=== PATIENT | male | born 1985 | race Caucasian/White ===

== ENCOUNTER 2024-08-06 13:16 | Emergency (ER) | payer OTHER, SELFPAY ==
[2024-08-06 13:22] VITALS: BP 132/96; PULSE 118; RESP 16; TEMP 36.6; O2SAT 100
[2024-08-06 14:44] VITALS: BP 142/83; PULSE 82; RESP 16; TEMP 36.9; O2SAT 100
[2024-08-06 14:52] LABS: Basophils Absolute Auto 0.1 K/mm3 (0.0-0.1); Basophils Percent Auto 0.4 % (0.2-1.2); Eosinophils Percent Auto 0.3 % (0-4.4); Hematocrit 50.1 % (42.0-52.0); Hemoglobin 17.5 g/dL (14.0-18.0); Immature Granulocyte Absolute 0.07 K/mm3 (0.00-0.031); Immature Granulocyte Percent A 0.6 % (0-0.5); Lymphocytes Absolute Auto 1.71 K/mm3 (0.9-3.2); Lymphocytes Percent Auto 14.6 % (18.3-44.2); Mean Corpuscular HGB Conc 34.9 g/dl (32-36); Mean Corpuscular Hemoglobin 30.4 pg (26-34); Mean Corpuscular Volume 87.1 fl (80-100); Mean Platelet Volume 9.2 fl (7.4-10.4); Monocytes Percent Auto 8.6 % (2.6-8.5); Neutrophils Absolute Auto 8.8 K/mm3 (1.3-6.7); Neutrophils Percent Auto 75.5 % (45.5-73.1); Platelet Count Result 312 k/mm3 (150-375); Red Blood Count 5.75 M/mm3 (4.6-6.20); Red Cell Distribution Width 12.1 % (11.5-14.5); White Blood Count 11.7 K/mm3 (4.5-10.0)
[2024-08-06 14:58] LABS: Add Urine Microscopic? NO; Appearance Urine Clear (Clear); Bilirubin Urine Negative (Negative); Blood Urine Negative (Negative); Color Urine Yellow (Yellow); Glucose Urine UA Negative (Negative); Ketones Urine Negative (Negative); Leukocyte Esterase Ur Negative LEU/UL (Negative); Nitrate Urine Negative (Negative); Protein Urine Negative (Negative); Specific Grav Ur 1.015 (1.001-1.035); Urobilinogen Urine 0.2 mg/dL (<2.0)
[2024-08-06 15:02] LABS: Alanine Aminotransferase 37 U/L (6-50); Albumin Level 4.9 g/dL (3.5-5.1); Alkaline Phosphatase 50 U/L (38-126); Anion Gap 12 mmol/L (4-12); Aspartate Amino Transferase 31 U/L (17-59); Bilirubin,Total 1.9 mg/dL (0.2-1.3); Blood Urea Nitrogen 7 mg/dL (9-20); Calcium 9.5 mg/dL (8.4-10.2); Carbon Dioxide 29 mmol/L (22-30); Chloride 96 mmol/L (98-107); Estimated CRCL calculation 78 ml/min; Estimated Glomerular Filt Rate > 60; Glucose 111 mg/dL (65-110); Lipase 45 U/L (23-300); Potassium 3.5 mmol/L (3.4-5.0); Sodium 137 mmol/L (137-145)
--- NOTE | 2024-08-06 15:52 | ED.GENADULT ---
HPI - General Adult General Chief complaint: Abdominal Pain Stated complaint: Abd Pain Time Seen by Provider: 08/06/24 14:34 History of Present Illness HPI narrative: This is a 38-year-old male presenting ED with chief complaint of nausea vomiting diarrhea. Yesterday evening patient's only he is getting a stomach flu. He developed an achy cramping pain that is associated with dry heaves and the feeling that he had a bowel movement. This morning went to Urgent Care was told to come to the ED for further eval. On my evaluation all of his symptoms are resolved and he is sitting in bed comfortably. No fevers chills chest pain difficulty breathing abdominal pain. No nausea vomiting diarrhea. Patient is requesting discharge. Related Data Allergies Allergy/AdvReac Type Severity Reaction Status Date / Time ampicillin Allergy Hives Verified 08/06/24 13:25 Exam Narrative: APPEARANCE: No apparent distress. Head: atraumatic. EYES: EOMI, NOSE: Atraumatic NECK: Trachea midline RESPIRATORY: No increased rate of breathing clear to auscultation CARDIOVASCULAR: RRR, ABDOMINAL: Soft nontender no guarding rebound MUSCULOSKELETAl: No obvious deformities NEURO: Alert. Moving 4/4 extremities SKIN:: Warm, dry. Normal color PSYCHIATRIC: Normal affect Course Vital Signs Vital signs: Vital Signs Temperature 97.8 F 08/06/24 13:22 Pulse Rate 118 H 08/06/24 13:22 Respiratory Rate 16 08/06/24 13:22 Blood Pressure 132/96 H 08/06/24 13:22 Pulse Oximetry 100 08/06/24 13:22 Oxygen Delivery Room Air 08/06/24 13:22 Temperature 98.5 F 08/06/24 14:44 Pulse Rate 82 08/06/24 14:44 Respiratory Rate 16 08/06/24 14:44 Blood Pressure 142/83 H 08/06/24 14:44 Pulse Oximetry 100 08/06/24 14:44 Oxygen Delivery Room Air 08/06/24 13:22 Medical Decision Making [facility] Narrative Medical decision making narrative: -Course: 38-year-old male presenting with abdominal pain nausea vomiting diarrhea. By time he was evaluated in emergency department all of his symptoms have resolved. His abdominal exam is benign. His vital signs have normalized without intervention. Discussed further workup versus discharge and patient would like to be sent home. He has declined any sort of antiemetics antispasmodics. Primary care follow-up and return precautions. -DDX includes but is not limited to: Gastroenteritis, food poisoning, gastritis, colitis -Independent interpretation of studies: Labs reviewed -Dx tests considered but not ordered: CT abdomen pelvis-benign abdominal exam -Shared decision making / Disposition: Discharged Vital Signs Vital Signs: Vital Signs Temperature 97.8 F 08/06/24 13:22 Pulse Rate 118 H 08/06/24 13:22 Respiratory Rate 16 08/06/24 13:22 Blood Pressure 132/96 H 08/06/24 13:22 Pulse Oximetry 100 08/06/24 13:22 Oxygen Delivery Room Air 08/06/24 13:22 Temperature 98.5 F 08/06/24 14:44 Pulse Rate 82 08/06/24 14:44 Respiratory Rate 16 08/06/24 14:44 Blood Pressure 142/83 H 08/06/24 14:44 Pulse Oximetry 100 08/06/24 14:44 Oxygen Delivery Room Air 08/06/24 13:22 Lab Data 08/06/24 14:45 08/06/24 14:45 Labs: Lab Results 08/06/24 08/06/24 Range/Units 14:45 14:50 WBC 11.7 H (4.5-10.0) K/mm3 RBC 5.75 (4.6-6.20) M/mm3 Hgb 17.5 (14.0-18.0) g/dL Hct 50.1 (42.0-52.0) % MCV 87.1 (80-100) fl MCH 30.4 (26-34) pg MCHC 34.9 (32-36) g/dl RDW 12.1 (11.5-14.5) % Plt Count 312 (150-375) k/mm3 MPV 9.2 (7.4-10.4) fl Immature Gran % (Auto) 0.6 H (0-0.5) % Neut % (Auto) 75.5 H (45.5-73.1) % Lymph % (Auto) 14.6 L (18.3-44.2) % [place] % (Auto) 8.6 H (2.6-8.5) % Eos % (Auto) 0.3 (0-4.4) % Baso % (Auto) 0.4 (0.2-1.2) % Lymph # (Auto) 1.71 (0.9-3.2) K/mm3 [place]ata # (Auto) 1.0 H (0.1-0.6) K/mm3 Eos # (Auto) 0.0 (0-0.3) K/mm3 Baso # (Auto) 0.1 (0.0-0.1) K/mm3 Abs
[2024-08-06 16:14] VITALS: BP 136/82; PULSE 80; RESP 16; TEMP 36.6; O2SAT 98
== END 2024-08-06 16:28 | disposition home or self-care (01) ==
PROVIDERS: Student in an Organized Health Care Education/Training Program; Emergency Provider Emergency Medicine; PCP Physician Assistant
DX: K52.9 Noninfective gastroenteritis and colitis, unspecified (principal)
CPT/HCPCS: 36415; 80053; 81003; 83690; 85025; 99283

== ENCOUNTER 2024-08-11 17:42 | Observation (INO) | payer OTHER, SELFPAY ==
--- NOTE | ~2024-08-11 | CT_ITS ---
CT abdomen pelvis w con Ordering provider: Gagan Kothari MD History: 38 years Male with . R abd pain and flank pain, RLQ pain . Comparison: None. Technique: CT abdomen and pelvis with IV and without oral contrast. Automated exposure control and it erative reconstruction technique were employed. The dose-length product was 367.01 mGy-cm. 100 mL Omn ipaque 350 was given IV. Findings: VISUALIZED LOWER CHEST: Dependent atelectatic changes. UPPER ABDOMINAL ORGANS: Liver: Normal. Gallbladder: Thickened wall of the gallbladder with surrounding edema highly suggestive of cholecysti tis. Small Lucent areas are seen in the gallbladder which may be stones or air which raises the possi bility of emphysematous cholecystitis. Spleen: Normal. Stomach/duodenum: Small sliding hiatus hernia. Slightly thickened wall of the stomach. Pancreas: Normal. Adrenals: Normal. Kidneys: Normal. PELVIC ORGANS: The bladder is normal. BOWEL AND MESENTERY: Colon: No evidence of diverticulitis. Normal appendix. Small Bowel: Normal. No obstruction. Peritoneum/mesentery: No free air or free fluid. No mesenteric lymphadenopathy. RETROPERITONEUM: Normal aorta. No retroperitoneal lymphadenopathy. MUSCULOSKELETAL: Superficial soft tissues: The superficial soft tissues are normal. Bones: Normal spine. IMPRESSION: 1. Distended gallbladder with thickened wall and surrounding edema suggestive of acute cholecystitis . Lucent areas are seen in the gallbladder which may be a stone. Air bubbles is possible which raises the possibility of emphysematous cholecystitis.Clinical correlation advised. 2. No evidence of appendicitis, diverticulitis or intestinal obstruction. Physician: Gagan Kothari MD Was notified with the result of the patient at the time 9:53 PM on August 11, 2024 Reviewed, dictated and finalized at location A. IMPRESSION: 1. Distended gallbladder with thickened wall and surrounding edema suggestive of acute cholecystitis. Lucent areas are seen in the gallbladder which may be a stone. Air bubbles is possible which raises the possibility of emphysematous c holecystitis.Clinical correlation advised. 2. No evidence of appendicitis, diverticulitis or intestinal obstruction. Physician: Gagan Kothari MD Was notified with the result of the patient at the time 9:53 PM on July
--- NOTE | ~2024-08-11 | NM_ITS ---
EXAMINATION: [facility] DATE: 08/12/2024 15:42 INDICATION: Cholecystitis. COMPARISON: CT abdomen and pelvis 08/11/2024 TECHNIQUE: 5.5 mCi Tc-99m mebrofenin (Choletec) was administered intravenously. Scintigraphic images of the abdomen were obtained for one hour. Delayed images were obtained at 4 hours. FINDINGS: There is normal clearance of radiotracer from the blood pool. There is homogeneous tracer u ptake by the liver. There is activity in the gallbladder, biliary tree, and bowel. IMPRESSION: 1. Patent cystic duct and common duct. Reviewed, dictated and finalized at location A.
--- NOTE | ~2024-08-11 | US_ITS ---
Limited ABDOMINAL ULTRASOUND Ordering provider: Jesus Alberto Kwong MD History: . SUSPECTED CHOLECYSTITIS . Comparison: None. FINDINGS: LIVER: Normal size with increased echogenicity.. No focal hepatic lesions or perihepatic fluid collec tions are identified. Popliteal vein flow is normal. GALLBLADDER: Cholelithiasis. Largest stone measures 0.9 x 0.7 x 1 cm. No evidence for sludge, gallbla dder or pericholecystic fluid collections. Thickening of the wall of the gallbladder is noted. A nega tive sonographic Parr's sign was noted. BILIARY DUCTS: No evidence for intra or extrahepatic biliary dilation. Common bile duct measures 3 mm in diameter which is within normal limits. PANCREAS: Normal echotexture and size. . UPPER ABDOMINAL AORTA: Normal in caliber. Proximal aorta measures 1.7 cm. Mid aorta measures 1.5 cm. IVC: Not demonstrated. FREE FLUID: None. IMPRESSION: Cholelithiasis. Thickening of the wall of the gallbladder. Follow-up advised. Fat infiltration of the liver. Reviewed, dictated and finalized at location A.
[2024-08-11 18:04] VITALS: BP 143/93; PULSE 118; RESP 16; TEMP 36.8; O2SAT 100
--- NOTE | 2024-08-11 20:27 | ED.BACK ---
HPI - Back Pain/Injury General Chief Complaint: Back Pain/Injury Stated Complaint: back pain Time Seen by Provider: 08/11/24 19:58 History of Present Illness HPI Narrative: 38-year-old male with no pertinent past medical history presenting to the emergency department for worsening right-sided flank pain radiating to his right groin and right lower quadrant. Patient states he was initially here for evaluation several days prior but his symptoms improved without any interventions and he went home feeling improved. He states that over last hour or so he has been having unbearable pain in his back that radiates to his right flank right upper quadrant right lower quadrant. No trouble in the restroom, no difficulty urinating, no blood in the urine. No diarrhea or constipation. No fever, chills. He does appear uncomfortable on my initial assessment, has not had anything happen like this in the past. No history kidney stones, no history of abdominal surgeries in the past. No trauma. Related Data Allergies Allergy/AdvReac Type Severity Reaction Status Date / Time ampicillin Allergy Hives Verified 08/06/24 13:25 Review of Systems Review of Systems: As reviewed above in HPI Exam Narrative: GENERAL: [Well-appearing, well-nourished, and in no acute distress.] HEAD: [Normocephalic, atraumatic.] EYES: [PERRLA and EOMI.] ENT: Nares clear, no rhinorrhea or epistaxis. Mucous membranes moist. NECK: Supple. CHEST: [Clear to auscultation. No respiratory distress.] HEART: [Regular rate and rhythm]. No murmur heard. [Normal peripheral pulses.] ABDOMEN: [Soft, nondistended], tender to palpation in right lower quadrant, right flank, no peritonitis, negative Parr sign, positive McBurney's point, [No rigidity or guarding] EXTREMITIES: Normal range of motion. [No edema.] SKIN: Warm, dry, no rash. NEURO: [No focal deficits]. Alert and oriented [x3.] PSYCH: [Normal mood and affect.] Course Vital Signs Vital signs: Vital Signs Temperature 36.8 C 08/11/24 18:04 Pulse Rate 118 H 08/11/24 18:04 Respiratory Rate 16 08/11/24 18:04 Blood Pressure 143/93 H 08/11/24 18:04 Pulse Oximetry 100 08/11/24 18:04 Temperature 36.6 C 08/11/24 22:12 Pulse Rate 114 H 08/11/24 22:12 Respiratory Rate 20 08/11/24 22:12 Blood Pressure 144/90 H 08/11/24 22:12 Pulse Oximetry 100 08/11/24 22:12 MDM - Back Pain/Injury MDM Narrative Medical decision making narrative: This 38-year-old male presenting for right-sided flank pain radiating to his right lower quadrant. He is pinpoint tender in the right lower quadrant and has mild right CVA tenderness. He is tachycardic 118 and very uncomfortable appearing but not ill or septic appearing. He is afebrile. Answers all my questions appropriately. No reported nausea or vomiting. Differential includes kidney stone, appendicitis, cholelithiasis, cholecystitis, gastroenteritis, gastritis. He was given Dilaudid for analgesia, fluid bolus, 4 mg of Zofran for any nausea. Patient has a very minor leukocytosis of 10.8 but no anemia. Coagulation studies within normal limits. Electrolytes appreciably without any derangements, normal renal function panel, glucose normal at 119, lactate 1.4. ALT mildly elevated 154, AST within normal limits, bilirubin normal, alk-phos and lipase normal. CT of the abdomen and pelvis was independently reviewed by myself and I appreciate significant gallbladder wall thickening, radiology interpretation shows distended gallbladder, surrounding edema suggestive of acute cholecystitis with lucent areas in the gallbladder with air bubbles raising suspicious for emphysematous cholecystitis. No evidence of appendicitis, diverticulitis or intestinal obstructions. Patient was re-evaluated after medications he had significant improvement his pain control. Vital signs improved and he was no longer tachycardic. He remained afebrile. Discussed the case with the general s
[2024-08-11] MEDS: ONDANSETRON INJ 4 MG/2 ML VIAL IV PUSH (20:29)
[2024-08-11] MEDS: HYDROmorphone HCL INJ (*CRX) 1 MG/ML SYR IV PUSH (20:30)
[2024-08-11] MEDS: LACTATED RINGERS 2,000 ML 999 ML IV CONT (20:31)
[2024-08-11 20:39] LABS: Basophils Absolute Auto 0.1 K/mm3 (0.0-0.1); Basophils Percent Auto 0.5 % (0.2-1.2); Eosinophils Percent Auto 0.1 % (0-4.4); Hematocrit 46.6 % (42.0-52.0); Hemoglobin 16.1 g/dL (14.0-18.0); Immature Granulocyte Absolute 0.06 K/mm3 (0.00-0.031); Immature Granulocyte Percent A 0.6 % (0-0.5); Lymphocytes Absolute Auto 0.74 K/mm3 (0.9-3.2); Lymphocytes Percent Auto 6.8 % (18.3-44.2); Mean Corpuscular HGB Conc 34.5 g/dl (32-36); Mean Corpuscular Hemoglobin 29.7 pg (26-34); Mean Platelet Volume 9.3 fl (7.4-10.4); Monocytes Absolute Auto 0.8 K/mm3 (0.1-0.6); Monocytes Percent Auto 7.7 % (2.6-8.5); Neutrophils Absolute Auto 9.2 K/mm3 (1.3-6.7); Neutrophils Percent Auto 84.3 % (45.5-73.1); Platelet Count Result 321 k/mm3 (150-375); Red Blood Count 5.42 M/mm3 (4.6-6.20); Red Cell Distribution Width 11.8 % (11.5-14.5); White Blood Count 10.8 K/mm3 (4.5-10.0)
[2024-08-11 20:44] VITALS: BP 132/99; PULSE 92; RESP 22; TEMP 36.6; O2SAT 100
[2024-08-11 20:52] LABS: Alanine Aminotransferase 154 U/L (6-50); Albumin Level 4.5 g/dL (3.5-5.1); Alkaline Phosphatase 85 U/L (38-126); Anion Gap 12 mmol/L (4-12); Aspartate Amino Transferase 29 U/L (17-59); Bilirubin,Total 1.2 mg/dL (0.2-1.3); Blood Urea Nitrogen 11 mg/dL (9-20); Calcium 9.4 mg/dL (8.4-10.2); Carbon Dioxide 25 mmol/L (22-30); Chloride 98 mmol/L (98-107); Estimated CRCL calculation 83 ml/min; Estimated Glomerular Filt Rate > 60; Glucose 119 mg/dL (65-110); Lipase 52 U/L (23-300); Potassium 4.3 mmol/L (3.4-5.0); Sodium 135 mmol/L (137-145)
[2024-08-11 20:54] LABS: Lactic Acid Reflex 1.4 mmol/L (0.7-2.0)
[2024-08-11 20:56] LABS: Prothrombin Time 13.6 Seconds (11.1-14.7)
[2024-08-11 20:57] LABS: Partial Thromboplastin Time 27.1 Seconds (22.3-36.8)
[2024-08-11 21:34] LABS: Add Urine Microscopic? YES; Appearance Urine Clear (Clear); Bacteria Urine None Seen /hpf; Bilirubin Urine Negative (Negative); Blood Urine Negative (Negative); Color Urine Dark Yellow (Yellow); Glucose Urine UA Negative (Negative); Ketones Urine 4+ mg/dL (Negative); Leukocyte Esterase Ur Negative LEU/UL (Negative); Nitrate Urine Negative (Negative); Non Pathogenic Casts 0-2; Protein Urine 1+ mg/dL (Negative); RBC Urine 0-2 /hpf (0-2); Specific Grav Ur > 1.045 (1.001-1.035); Squamous Epithelial Cell Urine None Seen /hpf (Few); Urobilinogen Urine 0.2 mg/dL (<2.0); WBC Urine 0-5 /hpf (0-3); pH Urine 5.5 (5.0-9.0)
[2024-08-11 22:12] VITALS: BP 144/90; PULSE 114; RESP 20; TEMP 36.6; O2SAT 100
[2024-08-11] MEDS: cefTRIAXone 2 GM/NS 100 ML 2 GM/100 ML BAG IVPB (22:23)
[2024-08-11 23:40] VITALS: BP 149/97; PULSE 102; RESP 14; O2SAT 100
[2024-08-11] MEDS: LACTATED RINGERS 1,000 ML 999 ML IV CONT (23:41)
[2024-08-11] MEDS: metroNIDAZOLE 500 MG/ISO 100ML 500 MG/100 ML BAG 100 MG IVPB (23:41)
--- NOTE | 2024-08-12 00:21 | ADMGEN ---
This patient, Hector Ocasio, was admitted to Medical Room [address] [place] [id number]. Patient/family oriented to hospital policies and general routines including ID bracelet, bed and alarms, visiting hours, pain management, procedures, bathroom and other care routines, personal items, smoking policy, room service/diet, and visiting hours. Information on how to activate the Rapid Response Team has been discussed. Patient/Family are encouraged to report perceived risks to care and to ask questions if they do not understand what they are told or what they should do.
[2024-08-12] MEDS: LACTATED RINGERS 1,000 ML 125 ML IV CONT ×3 (00:43→21:15)
[2024-08-12 01:04] VITALS: BP 132/82; PULSE 93; RESP 20; TEMP 36.1; O2SAT 100; BMI 24.5
--- NOTE | 2024-08-12 01:36 | PM.IMHP ---
H&P: HPI History of Present Illness Date/Time: 08/12/24 01:36 Chief Complaint: Right sided back pain Narrative: 38-year-old male previously healthy who presented to the ER with posterior the right back pain below the scapula pain radiating down to the right groin and right lower quadrant. The patient originally who presented to the ER on the with generalized crampy abdominal pain associated with intractable dry heaves and a sensation that he had to have a bowel movement. In hindsight the patient did report that the pain did radiate somewhat to the a mid back area. Pain was crampy and aching in nature and felt as if he does had a bad stomach bug. Came to the ER and had labs which demonstrated mild leukocytosis but were otherwise unremarkable. He received fluids and nausea meds and felt much better and his abdominal exam was benign so he was discharged home without imaging. He reports that for the next 3 days he did have some mild abdominal symptoms with some intermittent cramping and some decreased appetite. He was still having bowel movements but they were smaller in nature. He did not have any acholic stools or hematochezia or melena. Then around 14:00 on the he developed severe pain the right upper flank just below his scapula the pain radiated down into his right lower quadrant. As afternoon progressed the pain progressing out worse. He had some mild diaphoresis. He was having some nausea but no significant vomiting. He had had a small bolus serial about an hour to prior to onset of symptoms. He has been having some low-grade temperatures but no temperatures above 100?. He reported that the pain became so severe that he called a friend bring him into the hospital. While he was waiting in the waiting room the pain became unbearable. It more localized to the right upper quadrant. He was having some intermittent chills. His urine in the ER demonstrated 4+ ketones he stated that he was still having normal amount of urine output. He reports that he he has not been hospitalized since he was child. He is otherwise healthy and has never had any symptoms like this prior. Contrasted CT of the abdomen pelvis in the ER demonstrated distended gallbladder with thickened wall and surrounding edema suggesting acute cholecystitis with lucent areas within the gallbladder which may be stone air bubbles are possible which raises possibility of emphysematous cholecystitis. Patient was treated with Rocephin and Flagyl in the ER empirically and given Dilaudid and 2 L of LR. Review of Systems Review of Systems: 12 systems were reviewed with pertinent positives and negatives per HPI. Except as documented in the HPI, all other systems were reviewed and are negative. [facility] Past Medical History Medical History (Updated 08/12/24 @ 01:48 by Irasema Mesa DO) No pertinent past medical history Surgical History Surgical History (Updated 08/12/24 @ 01:38 by Irasema Mesa DO) No history of previous surgery Family History Family History (Updated 08/12/24 @ 07:09 by Irasema Mesa DO) Father Healthy adult Mother Breast cancer Sibling Healthy adult Social History Social History (Updated 08/12/24 @ 07:11 by Irasema Mesa DO) Social History: The patient works in IT. He admits to moderate alcohol use drinking anywhere between 2-5 beers a day but will often have intervals where he will not drink for several days or a week. He is a lifelong nonsmoker and denies history of illicit substance use. Code status: Full code Surrogate decision maker: Father Smoking status: Never smoker Alcohol intake: current Drinks per week: 14 Do You Feel Safe in your Home?: Yes Lack of Transportation: No Lack of Food: Never True Current Housing: I Have Housing Concerned About Future Housing: No Difficulty Paying Gas/Electric Bills: No Difficulty Paying for Meds: No Currently Unemployed: No Educati
[2024-08-12] MEDS: CEFEPIME 2 GM/NS 50 ML 2 GM/50 ML BAG IVPB ×3 (05:26→21:13)
[2024-08-12] MEDS: HYDROmorphone HCL INJ (*CRX) 1 MG/ML SYR 0.5 MG IV PUSH (05:41)
[2024-08-12 06:00] VITALS: BP 153/77; PULSE 89; RESP 20; TEMP 36.3; O2SAT 100
[2024-08-12] MEDS: metroNIDAZOLE 500 MG/ISO 100ML 500 MG/100 ML BAG 100 MG IVPB ×3 (06:15→21:57)
--- NOTE | 2024-08-12 08:37 | PC.NURSE ---
Patient off of unit to US
--- NOTE | 2024-08-12 11:47 | PM.CNGS ---
Assessment and Plan Assessment and plan (1) Cholelithiasis with cholecystitis: Code(s): K80.10 - Calculus of gallbladder with chronic cholecystitis without obstruction Status: Acute Assessment and Plan: Patient presented with right subscapular pain and RUQ abdominal pain. CT scan of the abdomen and pelvis showed gallbladder distention and wall thickening with few small lucent areas that could be stones or air, that would raise the possibility of emphysematous cholecystitis. His abdominal pain has improved since admission and he is now only complaining of right subscapular pain. He does have RUQ tenderness on exam. Agree with continuing IV antibiotics. Will keep him NPO. Dr. Kwong has ordered a RUQ abdominal ultrasound and HIDA scan today to further evaluate for possible acute cholecystitis. Discussed treatment options with the patient. If further workup is consistent with acute cholecystitis, then we would recommend proceeding with a laparoscopic cholecystectomy under general anesthesia that would be done by Dr. Kwong. Description of the procedure, risks, benefits, alternatives, and expected recovery were discussed with the patient in detail. The patient understands and agrees to proceed with surgery pending workup. He has been added to the surgery schedule for tomorrow. Will continue to follow along for results. (2) Dehydration: Code(s): E86.0 - Dehydration Status: Acute Assessment and Plan: Patient appeared slightly dehydrated on admission. He is still NPO and maintenance fluids were stopped. I will resume continuous IV fluids while awaiting testing and in preparation for surgery tomorrow. Plan I have discussed the patient's case and plan of care with Dr. Kwong. Thank you for allowing us to see the patient in consultation and we will continue to follow along with you. History of Present Illness Consult details Consult date: 08/12/24 Reason for consult: other (Possible emphysematous cholecystitis) Requesting physician: Gagan Kothari MD Narrative: This is a 38-year-old man who we have been asked to see in surgical consultation for possible emphysematous cholecystitis. He reports a sudden onset of mid upper back pain 1 week ago in the evening. He reports eating a cheeseburger for dinner that night prior to the onset of symptoms. His pain progressed through the night and he developed RUQ abdominal pain as well. He denies having this pain in the past. He reports associated nausea and vomiting. He was also having diarrhea, but reports having an issue with intermittent diarrhea over the past 1-2 months that is aggravated by eating fatty foods. He went to urgent care that following morning and they instructed him to go to the ED for evaluation. He was seen at [place] ED on 08/06/24. He had labs that showed a WBC count of 11,700, total bilirubin 1.9, but otherwise normal LFTs. His symptoms resolved by the time he was seen in the ED and his abdominal exam was benign, so he was discharged home without imaging. He reports over the following few days he had intermittent cramping pain in the epigastric area. His diarrhea was unchanged compared to the past few weeks. Then, yesterday afternoon, he developed severe pain just below the right scapula that came on suddenly that he believes was directly after a cough or sneeze. The pain was sharp and radiated around to his RUQ. The pain progressed through the day with no alleviating or associated symptoms. He reports only eating a bowel of cereal in the morning prior to the onset of pain. Due to the persistent pain, he returned to the ED. CT scan of the abdomen pelvis in the ER demonstrated a distended gallbladder with thickened wall and surrounding edema, suggesting acute cholecystitis with lucent areas within the gallbladder which may be stones or air bubbles which raises the possibility of emphysematous cholecystitis. Patient was admitted in this setting for surgical evaluation and started on
--- NOTE | 2024-08-12 12:54 | PC.NURSE ---
Patient off of unit to Nuclear Medicine
--- NOTE | 2024-08-12 14:24 | PM.IMPN ---
Progress Note: A&P Assessment and Plan (1) Acute emphysematous cholecystitis: Code(s): K81.0 - Acute cholecystitis Status: Acute (2) Dehydration: Code(s): E86.0 - Dehydration Status: Acute Plan Patient has acute emphysematous cholecystitis. Patient meets SIRS criteria with tachycardia and tachypnea but tachycardia resolved after adequate IV fluid hydration and pain medications. Given that the patient at higher risk for complications if the gallbladder is truly emphysematous will substitute cefepime instead of Rocephin that was initiated in the ER. Will also continue Flagyl. Will continue IV fluid hydration with LR. -pain medications Dilaudid 0.5 mg q.3 hours as needed. - Zofran as needed as well. Patient does have significant elevation in his urine specific gravity and 4+ ketones in his urine which is consistent with dehydration. Will continue IV fluid hydration as discussed above. Will repeat CBC and electrolyte panel in a.m.. Patient has been admitted as observation status. Time Spent With Patient Time with patient: Greater than 35 minutes Subjective Date/time seen: 08/12/24 1000 Interval history: Right sided back pain Narrative retried from H/P: 38-year-old male previously healthy who presented to the ER with posterior the right back pain below the scapula pain radiating down to the right groin and right lower quadrant. The patient originally who presented to the ER on the with generalized crampy abdominal pain associated with intractable dry heaves and a sensation that he had to have a bowel movement. In hindsight the patient did report that the pain did radiate somewhat to the a mid back area. Pain was crampy and aching in nature and felt as if he does had a bad stomach bug. Came to the ER and had labs which demonstrated mild leukocytosis but were otherwise unremarkable. He received fluids and nausea meds and felt much better and his abdominal exam was benign so he was discharged home without imaging. He reports that for the next 3 days he did have some mild abdominal symptoms with some intermittent cramping and some decreased appetite. He was still having bowel movements but they were smaller in nature. He did not have any acholic stools or hematochezia or melena. Then around 14:00 on the he developed severe pain the right upper flank just below his scapula the pain radiated down into his right lower quadrant. As afternoon progressed the pain progressing out worse. He had some mild diaphoresis. He was having some nausea but no significant vomiting. He had had a small bolus serial about an hour to prior to onset of symptoms. He has been having some low-grade temperatures but no temperatures above 100?. He reported that the pain became so severe that he called a friend bring him into the hospital. While he was waiting in the waiting room the pain became unbearable. It more localized to the right upper quadrant. He was having some intermittent chills. His urine in the ER demonstrated 4+ ketones he stated that he was still having normal amount of urine output. He reports that he he has not been hospitalized since he was child. He is otherwise healthy and has never had any symptoms like this prior. Contrasted CT of the abdomen pelvis in the ER demonstrated distended gallbladder with thickened wall and surrounding edema suggesting acute cholecystitis with lucent areas within the gallbladder which may be stone air bubbles are possible which raises possibility of emphysematous cholecystitis. Patient was treated with Rocephin and Flagyl in the ER empirically and given Dilaudid and 2 L of LR. 08/12 pt is seen and examined. surgery already saw him, he is scheduled for hyda scan. his pain is well controlled, he is not having any n/v Review of Systems Review of Systems: 12 systems were reviewed with pertinent positives and negatives per HPI. Except as documented in the HPI, all other systems we
[2024-08-12 14:46] VITALS: BP 128/89; PULSE 79; RESP 18; TEMP 36.8; O2SAT 100
[2024-08-12 22:00] VITALS: BP 160/80; PULSE 86; RESP 20; TEMP 36.5; O2SAT 100
[2024-08-13] VITALS (13 sets, daily range): BP systolic 123–152; BP diastolic 72–88; PULSE 80–104; RESP 12–20; TEMP 36.2–37.4; O2SAT 97–100
[2024-08-13] MEDS: CEFEPIME 2 GM/NS 50 ML 2 GM/50 ML BAG IVPB ×3 (05:22→21:06)
[2024-08-13] MEDS: metroNIDAZOLE 500 MG/ISO 100ML 500 MG/100 ML BAG 100 MG IVPB ×3 (05:59→21:07)
[2024-08-13 06:50] LABS: Basophils Absolute Auto 0.1 K/mm3 (0.0-0.1); Eosinophils Absolute Auto 0.2 K/mm3 (0-0.3); Eosinophils Percent Auto 2.2 % (0-4.4); Hematocrit 39.5 % (42.0-52.0); Hemoglobin 13.2 g/dL (14.0-18.0); Immature Granulocyte Absolute 0.03 K/mm3 (0.00-0.031); Immature Granulocyte Percent A 0.4 % (0-0.5); Lymphocytes Absolute Auto 1.24 K/mm3 (0.9-3.2); Lymphocytes Percent Auto 17.4 % (18.3-44.2); Mean Corpuscular HGB Conc 33.4 g/dl (32-36); Mean Corpuscular Hemoglobin 29.7 pg (26-34); Mean Platelet Volume 10.1 fl (7.4-10.4); Monocytes Absolute Auto 0.7 K/mm3 (0.1-0.6); Monocytes Percent Auto 9.9 % (2.6-8.5); Neutrophils Absolute Auto 4.9 K/mm3 (1.3-6.7); Neutrophils Percent Auto 69.1 % (45.5-73.1); Platelet Count Result 248 k/mm3 (150-375); Red Blood Count 4.44 M/mm3 (4.6-6.20); Red Cell Distribution Width 11.5 % (11.5-14.5); White Blood Count 7.1 K/mm3 (4.5-10.0)
[2024-08-13 07:02] LABS: Alanine Aminotransferase 83 U/L (6-50); Albumin Level 3.5 g/dL (3.5-5.1); Alkaline Phosphatase 41 U/L (38-126); Anion Gap 9 mmol/L (4-12); Aspartate Amino Transferase 24 U/L (17-59); Bilirubin,Total 1.2 mg/dL (0.2-1.3); Blood Urea Nitrogen 7 mg/dL (9-20); Calcium 8.3 mg/dL (8.4-10.2); Carbon Dioxide 22 mmol/L (22-30); Chloride 101 mmol/L (98-107); Estimated CRCL calculation 108 ml/min; Estimated Glomerular Filt Rate > 60; Glucose 76 mg/dL (65-110); Lipase 45 U/L (23-300); Potassium 4.5 mmol/L (3.4-5.0); Sodium 132 mmol/L (137-145)
--- NOTE | 2024-08-13 09:15 | PC.NURSE ---
Patient off of unit to surgery
--- NOTE | 2024-08-13 10:11 | WPDANESEPPF ---
Anes - Initial Pre Proc Eval Procedure: Operation Date: 08/13/24 10:30 Proposed Procedures p Laparoscopic Cholecystectomy - Jesus Alberto Kwong MD Date/Time: 08/13/24 10:11 Surgeon: Varghese Pre Op Diagnosis: Emphysematous cholecystitis Patient Data Age: 38 Gender: M Height: 1.85 m Weight: 84.6 kg Last Vital Signs Temp 36.3 C L 08/13/24 06:00 Pulse 87 08/13/24 06:00 Resp 20 08/13/24 06:00 BP 137/80 08/13/24 06:00 Pulse Ox 100 08/13/24 06:00 O2 Del Method Room Air 08/12/24 20:00 Allergies Allergy/AdvReac Type Severity Reaction Status Date / Time ampicillin Allergy Hives Verified 08/13/24 10:11 Home Medications Medication Instructions Recorded Confirmed Type No Home Medications 08/11/24 08/13/24 History Laboratory Tests 08/13/24 06:20 WBC 7.1 K/mm3 (4.5-10.0) RBC 4.44 L M/mm3 (4.6-6.20) Hgb 13.2 L g/dL (14.0-18.0) Hct 39.5 L % (42.0-52.0) MCV 89.0 fl (80-100) MCH 29.7 pg (26-34) MCHC 33.4 g/dl (32-36) RDW 11.5 % (11.5-14.5) Plt Count 248 k/mm3 (150-375) MPV 10.1 fl (7.4-10.4) Immature Gran % (Auto) 0.4 % (0-0.5) Neut % (Auto) 69.1 % (45.5-73.1) Lymph % (Auto) 17.4 L % (18.3-44.2) [place] % (Auto) 9.9 H % (2.6-8.5) Eos % (Auto) 2.2 % (0-4.4) Baso % (Auto) 1.0 % (0.2-1.2) Lymph # (Auto) 1.24 K/mm3 (0.9-3.2) [place] # (Auto) 0.7 H K/mm3 (0.1-0.6) Eos # (Auto) 0.2 K/mm3 (0-0.3) Baso # (Auto) 0.1 K/mm3 (0.0-0.1) Abs Immat Gran (auto) 0.03 K/mm3 (0.00-0.031) Absolute Neuts (auto) 4.9 K/mm3 (1.3-6.7) Absolute Nucleated RBC 0.000 K/mm3 (0.0-0.012) Nucleated RBC % 0.0 % (0.0-0.2) Sodium 132 L mmol/L (137-145) Potassium 4.5 mmol/L (3.4-5.0) Chloride 101 mmol/L (98-107) Carbon Dioxide 22 mmol/L (22-30) Anion Gap 9 mmol/L (4-12) BUN 7 L mg/dL (9-20) Creatinine 0.90 mg/dL (0.7-1.3) Estim Creat Clear Calc 108 ml/min Estimated GFR > 60 (59 - ) Glucose 76 mg/dL (65-110) Calcium 8.3 L mg/dL (8.4-10.2) Total Bilirubin 1.2 mg/dL (0.2-1.3) AST 24 U/L (17-59) ALT 83 H U/L (6-50) Alkaline Phosphatase 41 U/L (38-126) Total Protein 7.0 g/dL (6.3-8.2) Albumin 3.5 g/dL (3.5-5.1) Lipase 45 U/L (23-300) Patient hx anesthesia problems: none Family hx anesthesia problems: none Results Review: All pre-operative results and documents have been reviewed as part of the pre-operative evaluation. [facility] Past Medical History Medical History No pertinent past medical history Surgical History Surgical History No history of previous surgery Family History Family History (Updated 08/12/24 @ 07:09 by Irasema Mesa DO) Father Healthy adult Mother Breast cancer Sibling Healthy adult Social History Social History Social History: The patient works in [employer]. He admits to moderate alcohol use drinking anywhere between 2-5 beers a day but will often have intervals where he will not drink for several days or a week. He is a lifelong nonsmoker and denies history of illicit substance use. Code status: Full code Surrogate decision maker: Father Smoking status: Never smoker Alcohol intake: current Drinks per week: 14 Do You Feel Safe in your Home?: Yes Lack of Transportation: No Lack of Food: Never True Current Housing: I Have Housing Concerned About Future Housing: No Difficulty Paying Gas/Electric Bills: No Difficulty Paying for Meds: No Currently Unemployed: No Education: Bachelor's Degree Difficulty w/ Childcare or Family Care: No Spiritual care concerns: No Anes - Eval Final PreProcedure Day of Procedure 08/13/24 10:11 [place]
[2024-08-13] MEDS: KETOROLAC 15 MG/ML VIAL (*BKC) IV PUSH (10:18)
[2024-08-13] MEDS: ACETAMINOPHEN 500 MG TABLET 1000 MG PO (10:18)
--- NOTE | 2024-08-13 10:39 | WPDHPUPDATE1 ---
History and Physical Update Update Date/Time: 08/13/24 10:39 History and Physical has been reviewed, including an updated exam of the patient. There are NO changes in the patient's condition. Risks, benefits, and alternatives have been discussed and questions answered. Patient agrees to proceed with procedure.
--- NOTE | 2024-08-13 11:10 | PM.IMPN ---
Progress Note: A&P Assessment and Plan (1) Acute emphysematous cholecystitis: Code(s): K81.0 - Acute cholecystitis Status: Acute Assessment and Plan: laparoscopic cholecystectomy with Dr Kwong today,08/13 (2) Dehydration: Code(s): E86.0 - Dehydration Status: Acute Plan Patient has acute emphysematous cholecystitis. Patient meets SIRS criteria with tachycardia and tachypnea but tachycardia resolved after adequate IV fluid hydration and pain medications. Given that the patient at higher risk for complications if the gallbladder is truly emphysematous will substitute cefepime instead of Rocephin that was initiated in the ER. Will also continue Flagyl. Will continue IV fluid hydration with LR. -pain medications Dilaudid 0.5 mg q.3 hours as needed. - Zofran as needed as well. Patient does have significant elevation in his urine specific gravity and 4+ ketones in his urine which is consistent with dehydration. Will continue IV fluid hydration as discussed above. Will repeat CBC and electrolyte panel in a.m.. Patient has been admitted as observation status. Time Spent With Patient Time with patient: Greater than 35 minutes Subjective Date/time seen: 08/13/24 11:10 Interval history: Right sided back pain Narrative retried from H/P: 38-year-old male previously healthy who presented to the ER with posterior the right back pain below the scapula pain radiating down to the right groin and right lower quadrant. The patient originally who presented to the ER on the with generalized crampy abdominal pain associated with intractable dry heaves and a sensation that he had to have a bowel movement. In hindsight the patient did report that the pain did radiate somewhat to the a mid back area. Pain was crampy and aching in nature and felt as if he does had a bad stomach bug. Came to the ER and had labs which demonstrated mild leukocytosis but were otherwise unremarkable. He received fluids and nausea meds and felt much better and his abdominal exam was benign so he was discharged home without imaging. He reports that for the next 3 days he did have some mild abdominal symptoms with some intermittent cramping and some decreased appetite. He was still having bowel movements but they were smaller in nature. He did not have any acholic stools or hematochezia or melena. Then around 14:00 on the he developed severe pain the right upper flank just below his scapula the pain radiated down into his right lower quadrant. As afternoon progressed the pain progressing out worse. He had some mild diaphoresis. He was having some nausea but no significant vomiting. He had had a small bolus serial about an hour to prior to onset of symptoms. He has been having some low-grade temperatures but no temperatures above 100?. He reported that the pain became so severe that he called a friend bring him into the hospital. While he was waiting in the waiting room the pain became unbearable. It more localized to the right upper quadrant. He was having some intermittent chills. His urine in the ER demonstrated 4+ ketones he stated that he was still having normal amount of urine output. He reports that he he has not been hospitalized since he was child. He is otherwise healthy and has never had any symptoms like this prior. Contrasted CT of the abdomen pelvis in the ER demonstrated distended gallbladder with thickened wall and surrounding edema suggesting acute cholecystitis with lucent areas within the gallbladder which may be stone air bubbles are possible which raises possibility of emphysematous cholecystitis. Patient was treated with Rocephin and Flagyl in the ER empirically and given Dilaudid and 2 L of LR. 08/12 pt is seen and examined. surgery already saw him, he is scheduled for hyda scan. his pain is well controlled, he is not having any n/v 08/13- laparoscopic cholecystectomy per DR Kwong today Review of Systems Review of
[2024-08-13] MEDS: BUPIVACAINE/EPINEPHRINE 0.5% 50 ML VIAL 30 ML INFILTRATE (12:01)
[2024-08-13] MEDS: LACTATED RINGERS 1,000 ML 30 ML IV CONT ×2 (12:32)
--- NOTE | 2024-08-13 12:37 | W.PM.PROC2 ---
Procedure Note - Detailed Date of Procedure 08/13/24 Pre-op Diagnosis Cholecystitis with cholelithiasis Post-op Diagnosis Other (Acute on chronic cholecystitis, cholelithiasis) Procedure Performed Laparoscopic cholecystectomy Surgeon Jesus Alberto Kwong MD [employer] Aston lugo [facility] Anesthesia General and Local Indications Patient has had severe right lower thoracic pain that often radiates to his right flank and sometimes across the left side of his back. He sometimes has right upper quadrant abdominal pain as well. He was having has severe episode of this when he came to the emergency room two days ago. Imaging at that time suggested severe cholecystitis and possibly emphysematous cholecystitis. Patient was not septic and his pain improved. Ultrasound was done which also suggested gallstones and acute cholecystitis. HIDA scan was surprisingly negative. Continues to have primarily right lower thoracic back pain and is taken to surgery now for laparoscopic cholecystectomy Findings Severe acute on chronic cholecystitis. Gallbladder wall was extremely thick and was very difficult to grasp. Id was fibrotic as well. There were dense and vascular adhesions particularly in the lower half of the gallbladder. These adhesions were dense and very vascular. Dissection even with cautery tended to bleed despite taking care to avoid this. The cystic duct and cystic artery were encased in fibrotic inflammatory tissue. Once dissected, there anatomy was clear. The gallbladder was very inflamed chronically and intrahepatic near its upper 3rd. Consequently it was very difficult to separate the gallbladder wall from the liver which also resulted in more bleeding than usual. Liver itself appeared normal. There was no biliary ductal dilatation. Description of Procedure Patient was taken to surgery and induced into general anesthesia. The abdomen is prepped and draped. Trocars were placed in the usual fashion starting with a varies needle to insufflate the abdomen. Once adequately insufflated and trocars were in place, patient was placed in reverse Trendelenburg. The gallbladder was attempted to be decompressed but the bile was so thick and that it would not really pass through the laparoscopic aspirator. We then pushed as well as grasp the gallbladder anterosuperiorly. The adhesions on the upper half of the gallbladder were minor and came down without difficulty. On the distal half of the gallbladder, including the infundibular area, they were very dense and vascular. With the implant may show an and oozing of blood with the dissection, it was difficult to delineate structures as easily as usual. Using suction and careful dissection and as well as cautery, eventually I was able to dissect clearly the cystic artery and cystic duct. The cystic duct was fairly short and its wall was quite thickened. I dissected the gallbladder off the liver at its lower 3rd. Critical view was achieved. I then securely clipped and divided the cystic artery. The cystic duct was dissected a bit further and then clipped near the gallbladder. It was then divided passed clip. The cystic duct stump was ligated with a Vicryl endoloop which was quite secure. We then turned our attention to dissecting the gallbladder from the liver. Traction was placed on the gallbladder. It was very difficult to grasp as it had been. Careful dissection was performed and in the lower 2/3 of the gallbladder we were able to stay in a tissue plane although there were gangrenous changes of the gallbladder wall. The upper 3rd of the gallbladder showed the gallbladder to be intrahepatic and the tissue planes between the gallbladder and the liver were indistinct. It was difficult to avoid entry into the gallbladder or entry into superficial liver. Cautery was used for hemostasis. This dissection was performed carefully. Eventually the gallbladder was completely freed from the liver. We placed the gallbladder
[2024-08-13] MEDS: LACTATED RINGERS 1,000 ML 100 ML IV CONT (14:50)
[2024-08-13] MEDS: oxyCODONE/ACETAMINOPHEN (*CRX) 5-325 MG TABLET 1 TABLET PO ×2 (14:54→19:51)
[2024-08-13] MEDS: FAMOTIDINE 20 MG/2 ML VIAL IV PUSH (19:51)
[2024-08-14] MEDS: oxyCODONE/ACETAMINOPHEN (*CRX) 5-325 MG TABLET 1 TABLET PO ×2 (04:37→15:34)
[2024-08-14 04:40] VITALS: BP 121/83; PULSE 65; RESP 20; TEMP 36.1; O2SAT 100
[2024-08-14] MEDS: LACTATED RINGERS 1,000 ML 100 ML IV CONT (04:40)
[2024-08-14] MEDS: CEFEPIME 2 GM/NS 50 ML 2 GM/50 ML BAG IVPB (05:05)
[2024-08-14] MEDS: metroNIDAZOLE 500 MG/ISO 100ML 500 MG/100 ML BAG 100 MG IVPB (05:05)
[2024-08-14 06:23] LABS: Hematocrit 37.1 % (42.0-52.0); Hemoglobin 12.5 g/dL (14.0-18.0); Mean Corpuscular HGB Conc 33.7 g/dl (32-36); Mean Corpuscular Hemoglobin 30.1 pg (26-34); Mean Corpuscular Volume 89.4 fl (80-100); Mean Platelet Volume 9.3 fl (7.4-10.4); Platelet Count Result 300 k/mm3 (150-375); Red Blood Count 4.15 M/mm3 (4.6-6.20); Red Cell Distribution Width 11.5 % (11.5-14.5)
[2024-08-14 06:36] LABS: Alanine Aminotransferase 71 U/L (6-50); Albumin Level 3.3 g/dL (3.5-5.1); Alkaline Phosphatase 47 U/L (38-126); Anion Gap 9 mmol/L (4-12); Aspartate Amino Transferase 35 U/L (17-59); Bilirubin,Total 0.8 mg/dL (0.2-1.3); Blood Urea Nitrogen 10 mg/dL (9-20); Calcium 8.3 mg/dL (8.4-10.2); Carbon Dioxide 25 mmol/L (22-30); Chloride 100 mmol/L (98-107); Estimated CRCL calculation 98 ml/min; Estimated Glomerular Filt Rate > 60; Glucose 97 mg/dL (65-110); Potassium 4.1 mmol/L (3.4-5.0); Sodium 134 mmol/L (137-145)
[2024-08-14 07:06] LABS: Basophils Percent Auto 0.3 % (0.2-1.2); Eosinophils Percent Auto 0.1 % (0-4.4); Immature Granulocyte Absolute 0.07 K/mm3 (0.00-0.031); Immature Granulocyte Percent A 0.6 % (0-0.5); Lymphocytes Absolute Auto 1.02 K/mm3 (0.9-3.2); Lymphocytes Percent Auto 8.6 % (18.3-44.2); Monocytes Absolute Auto 0.9 K/mm3 (0.1-0.6); Monocytes Percent Auto 7.8 % (2.6-8.5); Neutrophils Absolute Auto 9.8 K/mm3 (1.3-6.7); Neutrophils Percent Auto 82.6 % (45.5-73.1)
[2024-08-14] MEDS: ENOXAPARIN 40 MG/0.4 ML SYRINGE SUB-Q (08:55)
[2024-08-14] MEDS: FAMOTIDINE 20 MG/2 ML VIAL IV PUSH (08:56)
[2024-08-14] MEDS: oxyCODONE/ACETAMINOPHEN (*CRX) 10-325 MG TABLET 1 TAB PO (08:56)
--- NOTE | 2024-08-14 09:12 | PM.IMPN ---
Progress Note: A&P Assessment and Plan (1) Cholelithiasis with cholecystitis: Code(s): K80.10 - Calculus of gallbladder with chronic cholecystitis without obstruction Status: Acute Assessment and Plan: Abdomen/pelvis CT: 1. Distended gallbladder with thickened wall and surrounding edema suggestive of acute cholecystitis. Lucent areas are seen in the gallbladder which may be a stone. Air bubbles is possible which raises the possibility of emphysematous cholecystitis.Clinical correlation advised. 2. No evidence of appendicitis, diverticulitis or intestinal obstruction. Abdomen US: Cholelithiasis. Thickening of the wall of the gallbladder. Follow-up advised. Fat infiltration of the liver. Hepatobiliary nuclear medicine: Patent cystic duct and common duct. - Antibiotics: cefepime and flagyl started on 08/12 - Monitor vital signs, I and O's, check stool output, neuro status and patient is a fall risk - Monitor serum electrolytes and CBC - IV pain management - Gentle IV fluid resuscitation - Surgery consulted s/p laparoscopic cholecystectomy on 08/[address] Kwong (2) Dehydration: Code(s): E86.0 - Dehydration Status: Acute Assessment and Plan: Jena was slightly dehydrated on admission. He was made NPO and at some point maintenance fluids were stopped. - IV fluids resumed yesterday per surgery - Monitor Subjective Date/time seen: 08/14/24 09:12 Interval history: 38-year-old male previously healthy who presented to the ER with posterior the right back pain below the scapula pain radiating down to the right groin and right lower quadrant. Review of Systems Review of Systems: All systems reviewed & are unremarkable except as noted in HPI and below Exam Narrative: AF General: well nourished, well-developed male in no acute respiratory distress who is nontoxic appearing, lying semi recumbent in bed. HEENT: Normocephalic. Atraumatic. Pupils equal round reactive to light. Extraocular movement intact. Sclera clear and anicteric. Nares patent. No oral lesions. Moist mucous membranes. Tongue is midline. Palate filippo symmetrically. No facial asymmetry. Neck: Neck was supple. No dominant adenopathy, thyromegaly or masses. 2+ carotid upstrokes without bruits. Chest: Lungs are clear to auscultation bilaterlly. No wheezes or crackles. CV: Heart was regular rate and rhythm. S1/S2. No murmurs, gallops, or rubs. Abd: Abdomen was soft. Nontender. Nondistended. Postive bowel sounds. No organomegaly or masses. Ext: No clubbing, cyanosis, or edema. 2+ DP pulses bilaterally. Neuro: Patient is alert and oriented x4. Strenth is 5/5 in both upper and lower extremities. Cranial nerves 2-12 are intact. Speech is clear. Psych: Normal nood and affect. Patient is pleasant and cooperative. Skin: Warm and dry. No rashes noted. Objective Data Vital Signs Vital Signs: Vital Signs - 24 hr 08/13/24 10:13 08/13/24 12:32 08/13/24 12:45 Temperature 98.5 F 99.3 F Pulse Rate 94 93 103 H Respiratory Rate 18 12 18 Blood Pressure 152/88 H 129/80 142/86 H Pulse Oximetry 100 100 100 Oxygen Delivery Room Air Simple Face Mask Simple Face Mask Oxygen Flow Rate 6 6 08/13/24 13:00 08/13/24 12:50 08/13/24 13:15 Temperature Pulse Rate 99 96 Respiratory Rate 18 16 Blood Pressure 139/81 131/83 Pulse Oximetry 100 97 Oxygen Delivery Room Air Room Air Room Air Oxygen Flow Rate 08/13/24 13:30 08/13/24 13:59 08/13/24 14:15 Temperature 99.0 F 98.1 F 97.1 F L Pulse Rate 104 H 93 95 Respiratory Rate 18 18 18 Blood Pressure 124/80 125/79 126/76 Pulse Oximetry 100 100 99 Oxygen Delivery Room Air Oxygen Flow Rate 08/13/24 14:45 08/13/24 15:45 08/13/24 19:23 Temperature 97.7 F 97.8 F 97.7 F Pulse Rate 91 83 81 Respiratory Rate 18 18 16 Blood Pressure 129/79 141/84 H 123/72 Pulse Oximetry 100 100 100 Oxygen Delivery Oxygen Flow Rate 08/13/24 23:23 08/14/24 04:40 Temperature 97.
[2024-08-14 11:06] VITALS: BP 127/80; PULSE 83; RESP 16; TEMP 36.7; O2SAT 100
--- NOTE | 2024-08-14 13:51 | P.PNAN_ITS ---
Anes - Prog Note Post-Op Date/Time: 08/14/24 13:51 Cardiovascular status: normal Respiratory status: normal Airway patency: baseline Mental status: baseline Post-Op hydration status: normal Vital Signs: Last Vital Signs Temp 36.7 C 08/14/24 11:06 Pulse 83 08/14/24 11:06 Resp 16 08/14/24 11:06 BP 127/80 08/14/24 11:06 Pulse Ox 100 08/14/24 11:06 O2 Del Method Room Air 08/14/24 08:56 O2 Flow Rate 6 08/13/24 12:45 Pain Score (VAS): 1 I/O: Intake & Output 08/13/24 08/14/24 08/14/24 23:59 07:59 15:59 Intake Total 640 1550 240 Balance 640 1550 240 Laboratory Tests 08/14/24 06:06 08/14/24 06:06 08/14/24 06:06 WBC 12.0 H RBC 4.15 L Hgb 12.5 L Hct 37.1 L MCV 89.4 MCH 30.1 MCHC 33.7 RDW 11.5 Plt Count 300 MPV 9.3 Immature Gran % (Auto) 0.6 H Neut % (Auto) 82.6 H Lymph % (Auto) 8.6 L [place] % (Auto) 7.8 Eos % (Auto) 0.1 Baso % (Auto) 0.3 Lymph # (Auto) 1.02 [place] # (Auto) 0.9 H Eos # (Auto) 0.0 Baso # (Auto) 0.0 Abs Immat Gran (auto) 0.07 H Absolute Neuts (auto) 9.8 H Absolute Nucleated RBC 0.000 Nucleated RBC % 0.0 Sodium 134 L Potassium 4.1 Chloride 100 Carbon Dioxide 25 Anion Gap 9 BUN 10 Creatinine 1.00 Estim Creat Clear Calc 98 Estimated GFR > 60 Glucose 97 Calcium 8.3 L Total Bilirubin 0.8 AST 35 ALT 71 H Alkaline Phosphatase 47 Total Protein 6.0 L Albumin 3.3 L Patient Feedback: Patient satisfied with anesthetic care.
--- NOTE | 2024-08-14 14:55 | PM.PNGS ---
Progress Note: A&P Assessment and Plan (1) Cholelithiasis with cholecystitis: Code(s): K80.10 - Calculus of gallbladder with chronic cholecystitis without obstruction Status: Acute Assessment and Plan: Postop day 1 and doing well. Surgically stable for discharge on a low fat diet. We will send him home with a 5-day course of ciprofloxacin. Follow-up with Dr. Kwong in 2 weeks. Plan I have discussed the patient's case and plan of care with Dr. Kwong. Subjective Subjective Date/Time Seen: 08/14/24 14:55 Post Op day: 1 (laparoscopic cholecystectomy) Patient reports: no new complaints, feels better, tolerating a regular diet, voiding w/o difficulty and afebrile Interval history: Patient doing well today. His back pain and RUQ abdominal pain prior to surgery has completely resolved. He has some incisional soreness at the epigastric incision that is well controlled with oral analgesics. Tolerating activity well. No other complaints at this time. Exam Const: General: comfortable and no acute distress GI: Inspection: non-distended and incision (incisions dry and intact) GI Palp: Yes Soft to palpation, Yes Tenderness to palpation present (GI) (incisional) and No Guarding due to palpation present (GI) Auscultation: normal bowel sounds Neuro: General: moves all extremities and no focal motor deficits Extrem: General: no calf tenderness and no edema Psych: Mental Status: mental status grossly normal Insight: Good insight present (Psych) Objective Data Vital Signs Vital Signs: Vital Signs - 24 hr 08/13/24 15:45 08/13/24 19:23 08/13/24 23:23 Temperature 97.8 F 97.7 F 97.1 F L Pulse Rate 83 81 80 Respiratory Rate 18 16 16 Blood Pressure 141/84 H 123/72 134/75 Pulse Oximetry 100 100 99 Oxygen Delivery 08/14/24 04:40 08/14/24 11:06 08/14/24 08:56 Temperature 97.0 F L 98.1 F Pulse Rate 65 83 Respiratory Rate 20 16 Blood Pressure 121/83 127/80 Pulse Oximetry 100 100 Oxygen Delivery Room Air Intake/Output Intake/Output: Intake & Output 08/11/24 08/12/24 08/13/24 08/14/24 23:59 23:59 23:59 23:59 Intake Total 2100 2650 1440 1790 Balance 2100 2650 1440 1790 Meds/Results Medications: Active Medications Generic Name Dose Route Start Last Admin Trade Name Freq PRN Reason Stop Dose Admin Acetaminophen 500 mg 08/13/24 13:38 Acetaminophen 500 Mg Tablet PO Q6H PRN Pain Rated 1-3 Diphenhydramine HCl 25 mg 08/13/24 13:38 Diphenhydramine Hcl Inj 50 Mg/Ml Vial IV PUSH Q6H PRN Itching Enoxaparin Sodium 40 mg 08/14/24 09:00 08/14/24 08:55 Enoxaparin 40 Mg/0.4 Ml Syringe SUB-Q 40 mg DAILY GABE Administration Famotidine 20 mg 08/13/24 21:00 08/14/24 08:56 Famotidine 20 Mg/2 Ml Vial IV PUSH 20 mg Q12HR GABE Administration Cefepime HCl 2 gm in 50 mls @ 100 mls/hr 08/12/24 06:00 08/14/24 05:35 Maxipime 2 Gm/Ns 50 Ml IVPB Infused Q8HR GABE Infusion Metronidazole 500 mg in 100 mls @ 100 mls/hr 08/12/24 06:00 08/14/24 06:05 Flagyl 500 Mg/Iso Soln 100 Ml IVPB Infused Q8HR GABE Infusion Lactated Ringer's 1,000 mls @ 100 mls/hr 08/13/24 13:38 08/14/24 04:40 Lr - Lactated Ringers Iv IV CONT 100 mls/hr .Q10H GABE Administration Ibuprofen 800 mg in 200 mls @ 400 mls/hr 08/13/24 13:38 Caldolor 800 Mg/200 Ml IVPB Q6H PRN Breakthrough Pain Rated 1-3 or NPO Morphine Sulfate 2 mg 08/13/24 13:38 Morphine Sulfate (*Crx) 2 Mg/Ml Inj IV PUSH Q2H PRN Breakthrough Pain Rated 4-6 or NPO Morphine Sulfate 4 mg 08/13/24 13:38 Morphine Sulfate (*Crx) 4 Mg/Ml Inj IV PUSH Q2H PRN Breakthrough Pain Rated 7-10 or NPO Naloxone HCl 0.1 mg 08/13/24 13:38 Naloxone Hcl 0.4 Mg/Ml Vial IV PUSH Q2M PRN Opiate Reversal Ondansetron HCl 4 mg 08/12/24 01:51 Ondansetron Inj 4 Mg/2 Ml Vial IV PUSH Q4H PRN Nausea And Vomiting Oxycodone/Acetaminophen 1 tablet 1
--- NOTE | 2024-08-14 15:23 | PM.DS ---
DS: Admitting Diagnosis Discharge Date 08/14/2024 Admitting Diagnosis Cholelithiasis with cholecystitis Dehydration DS: Discharge Diagnosis Discharge Diagnosis (1) Cholelithiasis with cholecystitis: Code(s): K80.10 - Calculus of gallbladder with chronic cholecystitis without obstruction Status: Acute (2) Dehydration: Code(s): E86.0 - Dehydration Status: Acute DS: Summary Hospital Course Reason for hospitalization: Cholelithiasis with cholecystitis Dehydration Hospital Course: 38-year-old male previously healthy who presented to the ER with posterior right back pain below the scapula pain radiating down to the right groin and right lower quadrant. On admission patient has slight leukocytosis, labs otherwise unremarkable. Patient was slightly dehydrated and was made NPO and started on IV fluids. Patient had an abdomen/pelvis CT which showed distended gallbladder with thickened wall and surrounding edema suggestive of acute cholecystitis. Lucent areas are seen in the gallbladder which may be a stone. Air bubbles is possible which raises the possibility of emphysematous cholecystitis. No evidence of appendicitis, diverticulitis or intestinal obstruction. He also had an abdomen US which showed cholelithiasis, thickening of the wall of the gallbladder, and fat infiltration of the liver. A hepatobiliary nuclear medicine showed patent cystic duct and common duct. Patient was started on cefepime and flagyl. Surgery was consulted and patient underwent a laparoscopic cholecystectomy on 08/[address] Kwong. Following the surgery patient was able to eat a low fat diet without increased nausea/vomiting or abdominal pain. He continues to pass flatus. Prior to discharge patient was transitioned to PO antibiotics per surgery to complete the course. He denies chest pain, shortness of breath, nausea/vomiting and abdominal pain. Patient was discharged home with family in stable condition. He is to complete his antibiotics as prescribed and follow up with surgery, Dr. Kwong in 2 weeks. Patient is also to follow up with his PCP in 1 week. Status at Discharge Functional status at discharge: independent ambulation Time Spent with Patient Time attestation: Total time spent providing and/or coordinating discharge services: Time spent: Greater than 30 minutes Exam Narrative: AF HR 83 RR 16 SpO2 100 BP 127/80 General: male in no acute respiratory distress who is nontoxic appearing, sitting up in bed. HEENT: Normocephalic. Atraumatic. Extraocular movement intact. Sclera clear and anicteric. No facial asymmetry. Chest: Lungs are clear to auscultation bilaterally. No wheezes or crackles. CV: Heart was regular rate and rhythm. S1/S2. No murmurs, gallops, or rubs. Abd: Abdomen was soft. Tender to palpation. Nondistended. Positive bowel sounds. Laparoscopic incisions are clear/dry/intact. Neuro: Patient is alert and oriented x4. Speech is clear. DS: Data Data Completed and Pending Completed studies during hospitalization: Pending at discharge 08/13/24 11:46 Surgical [PTH] Routine Labs on day of discharge: Labs from last 24 hours 08/14/24 06:06 WBC 12.0 H RBC 4.15 L Hgb 12.5 L Hct 37.1 L MCV 89.4 MCH 30.1 MCHC 33.7 RDW 11.5 Plt Count 300 MPV 9.3 Immature Gran % (Auto) 0.6 H Neut % (Auto) 82.6 H Lymph % (Auto) 8.6 L [place] % (Auto) 7.8 Eos % (Auto) 0.1 Baso % (Auto) 0.3 Lymph # (Auto) 1.02 [place] # (Auto) 0.9 H Eos # (Auto) 0.0 Baso # (Auto) 0.0 Abs Immat Gran (auto) 0.07 H Absolute Neuts (auto) 9.8 H Absolute Nucleated RBC 0.000 Nucleated RBC % 0.0 Sodium 134 L Potassium 4.1 Chloride 100 Carbon Dioxide 25 Anion Gap 9 BUN 10 Creatinine 1.00 Estim Creat Clear Calc 98 Estimated GFR > 60 Glucose 97 Calcium 8.3 L Total Bilirubin 0.8 AST 35 ALT 71 H Alkaline Phosphatase 47 Total Protein 6.0 L Albumin 3.3 L Preliminary micro results at discharge 08/11/24 2
--- NOTE | 2024-08-21 09:02 | PC.NURSE ---
Blood cx are negative.
== END 2024-08-14 15:45 | disposition home or self-care (01) ==
LOC: ANHED 22:53 → ANH3MED 23:26
PROVIDERS: Surgery; Admitting Provider Internal Medicine; Emergency Provider Student in an Organized Health Care Education/Training Program; PCP Physician Assistant; Visit Provider Student in an Organized Health Care Education/Training Program
PROC: 0FT44ZZ Resection of Gallbladder, Percutaneous Endoscopic Approach (ICD-10-PCS; CPT 47562; principal; 2024-08-13 10:30)
DX: K80.00 Calculus of gallbladder with acute cholecystitis without obstruction (principal); K82.8 Other specified diseases of gallbladder; E86.0 Dehydration
CPT/HCPCS: 47562; 36415; 74177; 76705; 78226; 80053; 81001; 83605; 83690; 85025; 85610; 85730; 87040; 88304; 96361; 96365; 96375; 99285; A9270; A9537; G0378; J0692; J0696; J1100; J1170; J1171; J1650; J1836; J1885; J2003; J2250; J2405; J2704; J3010; J7120; Q9967